=== PATIENT | female | born 1995 | race Caucasian/White ===

== ENCOUNTER 2021-03-23 04:46 | Inpatient (IN) | payer OTHER ==
[~2021-03-23] VITALS: Ht 165.1 cm; Wt 121.0 kg
[~2021-03-23 04:46] MED LIST: ALBU90OI; ALBU90OI INH; AZIT250 PO; BIRTH CONTROL; CETI10 PO; FLUSAL1005 INH; IBUP600 PO; IBUP800 PO; LABE100 PO; MEDR10 PO; MONT10T PO; NITR100CA PO; OXYACE5T PO; PHENA100 PO; PRED10 PO; PRED20 PO; PSEU120ER PO; VENL75ER PO; Verotin-Gr Cap1 EACH PO
[2021-03-23] MEDS ORDERED: ZYRTEC10 M2 PO (05:48)
[2021-03-23] MEDS ORDERED: MONT10T (05:48)
[2021-03-23 05:57] LABS: BASOPHILS ABSOLUTE AUTO 0.03 K/mm3 (0.00-0.23); BASOPHILS PERCENT AUTO 0 % (0-2); EOSINOPHILS ABSOLUTE AUTO 0.24 K/mm3 (0.00-0.68); EOSINOPHILS PERCENT AUTO 2 % (0-6); Hematocrit 31.9 % (33.0-51.0); Hemoglobin 10.3 g/dL (11.5-16.0); IMMATURE GRAN ABSOLUTE AUTO 0.13 K/mm3 (0.00-0.10); IMMATURE GRAN PERCENT AUTO 1 % (0-1); LYMPHOCYTES ABSOLUTE AUTO 2.18 K/mm3 (0.84-5.20); LYMPHOCYTES PERCENT AUTO 18 % (21-46); MONOCYTES PERCENT AUTO 7 % (4-13); Mean Corpuscular HGB 28.8 pg (26.0-34.0); Mean Corpuscular HGB Conc 32.3 g/dL (31.5-36.5); Mean Corpuscular Volume 89 fL (80-100); Mean Platelet Volume 10.5 fL (9.1-12.4); NEUTROPHILS ABSOLUTE AUTO 8.97 K/mm3 (1.96-9.15); NEUTROPHILS PERCENT AUTO 73 % (41-73); Platelet Count 252 K/mm3 (150-400); RDW Coefficient Variation 14.6 % (11.7-14.2); RDW Standard Deviation 46.7 fL (35.1-46.3); Red Blood Cell Count 3.58 M/mm3 (3.80-5.20); White Blood Cell Count 12.35 K/mm3 (4.00-11.30)
[2021-03-23 06:12] LABS: SARS-Cov-2 (COVID-19) PCR, MMC NEGATIVE (NEGATIVE)
[2021-03-24 05:55] LABS: Hematocrit 27.1 % (33.0-51.0); Hemoglobin 8.6 g/dL (11.5-16.0); Mean Corpuscular HGB 29.5 pg (26.0-34.0); Mean Corpuscular HGB Conc 31.7 g/dL (31.5-36.5); Mean Corpuscular Volume 93 fL (80-100); Mean Platelet Volume 10.5 fL (9.1-12.4); Platelet Count 187 K/mm3 (150-400); RDW Coefficient Variation 14.9 % (11.7-14.2); RDW Standard Deviation 50.5 fL (35.1-46.3); Red Blood Cell Count 2.92 M/mm3 (3.80-5.20); White Blood Cell Count 14.23 K/mm3 (4.00-11.30)
[2021-03-24] MEDS ORDERED: Colace100 MG PO (10:22)
[2021-03-24] MEDS ORDERED: IBUP800 PO (10:22)
--- NOTE | 2021-03-24 13:59 | NUR ---
PT IS DC'D HOME WITH AND SO. DC INSTRUCTIONS RECEIVED. BANDS MATCHED.
== END 2021-03-24 14:15 | disposition home or self-care (01) | DRG 807 ==
LOC: BC 04:46 → OBS 04:46 → BC 05:13
PROVIDERS: ADMIT Advanced Practice Midwife
PROC: 10E0XZZ Delivery of Products of Conception, External Approach (ICD-10-PCS; principal; 2021-03-23)
PROC: 3E0R3BZ Introduction of Anesthetic Agent into Spinal Canal, Percutaneous Approach (ICD-10-PCS; 2021-03-23)
PROC: 00HU33Z Insertion of Infusion Device into Spinal Canal, Percutaneous Approach (ICD-10-PCS; 2021-03-23)
DX: O99.824 Streptococcus B carrier state complicating childbirth (principal); Z37.0 Single live birth; Z3A.40 40 weeks gestation of pregnancy; O34.219 Maternal care for unspecified type scar from previous cesarean delivery; Z20.822 Contact with and (suspected) exposure to COVID-19
CPT/HCPCS: 36415; 51702; 85025; 85027; 86850; 86900; 86901; A9270; J0290; J1885; J2001; J2210; J2590; J3010; J7120; U0004

== ENCOUNTER → 2022-01-02 | Outpatient (CLI) | payer OTHER ==
[~2022-01-02] MED LIST changes: +Colace100 MG PO; +MONT10T; +ZYRTEC10 M2 PO
== END | disposition home or self-care (01) ==
LOC: LAB SHORT 11:30 → LAB 11:30
PROVIDERS: Family Medicine
DX: K52.9 Noninfective gastroenteritis and colitis, unspecified (principal)
CPT/HCPCS: 87338

== ENCOUNTER → 2023-07-15 | Outpatient (CLI) | payer OTHER | LOC: LAB 11:47 → LAB SHORT 11:47 | DX: R82.90 Unspecified abnormal findings in urine (principal) | CPT/HCPCS: 87086 ==

== ENCOUNTER → 2024-08-02 | Outpatient (CLI) | payer OTHER | LOC: LAB SHORT 12:00 → LAB 12:00 | DX: Z34.93 Encounter for supervision of normal pregnancy, unspecified, third trimester (principal) | CPT/HCPCS: 87081; 87150 ==

== ENCOUNTER 2024-08-20 07:05 | Inpatient (IN) | payer OTHER ==
[~2024-08-20] VITALS: Ht 165.1 cm; Wt 115.0 kg
[2024-08-20] VITALS (34 sets, daily range): BP systolic 97–134; BP diastolic 48–79
[2024-08-20] MEDS ORDERED: Lactated Ringer's 1,000 ML IV PRN ×3 (07:20→07:25)
[2024-08-20] MEDS ORDERED: OXYTOCIN/RINGER'S LACTATE 500 ML IV SCH (07:20)
[2024-08-20] MEDS ORDERED: FentaNYL 2mcg/ml-Bup 0.1% Epd 250 ML EPI PRN (07:20)
[2024-08-20] MEDS ORDERED: ePHEDrine Sulfate 50 MG/ML 1ML Injection XX PRN (07:20)
[2024-08-20] MEDS ORDERED: Acetaminophen 500 MG Tab PO PRN ×2 (07:20→23:20)
[2024-08-20] MEDS ORDERED: Misoprostol 200 MCG Tab BC PRN (07:20)
[2024-08-20] MEDS ORDERED: Carboprost Tromethamine 250 MCG/ML 1ML Amp IM PRN (07:20)
[2024-08-20] MEDS ORDERED: Misoprostol 200 MCG Tab PR PRN ×2 (07:20→23:15)
[2024-08-20] MEDS ORDERED: Oxytocin 10 Unit / ML Vial IM PRN (07:20)
[2024-08-20] MEDS ORDERED: Methylergonovine Maleate 0.2MG / ML 1ML Amp IM PRN ×2 (07:20→23:40)
[2024-08-20] MEDS ORDERED: Lactated Ringer's 1,000 ML IV SCH (07:20)
[2024-08-20] MEDS ORDERED: OXYTOCIN/RINGER'S LACTATE 500 ML IV PRN (07:20)
[2024-08-20] MEDS ORDERED: Ondansetron HCl 2 MG / ML 2ML Vial IV PRN ×2 (07:20→22:55)
[2024-08-20] MEDS ORDERED: Tranexamic Acid 100 ML IV SCH (07:20)
[2024-08-20] MEDS ORDERED: Calcium Carbonate 500 MG Tab Chew PO SCH (07:25)
[2024-08-20 08:07] LABS: BASOPHILS ABSOLUTE AUTO 0.02 K/mm3 (0.00-0.23); BASOPHILS PERCENT AUTO 0 % (0-2); EOSINOPHILS ABSOLUTE AUTO 0.23 K/mm3 (0.00-0.68); EOSINOPHILS PERCENT AUTO 2 % (0-6); Hematocrit 33.2 % (33.0-51.0); Hemoglobin 11.4 g/dL (11.5-16.0); IMMATURE GRAN ABSOLUTE AUTO 0.16 K/mm3 (0.00-0.10); IMMATURE GRAN PERCENT AUTO 2 % (0-1); LYMPHOCYTES ABSOLUTE AUTO 2.04 K/mm3 (0.84-5.20); LYMPHOCYTES PERCENT AUTO 19 % (21-46); MONOCYTES ABSOLUTE AUTO 0.75 K/mm3 (0.16-1.47); MONOCYTES PERCENT AUTO 7 % (4-13); Mean Corpuscular HGB 34.5 pg (26.0-34.0); Mean Corpuscular HGB Conc 34.3 g/dL (31.5-36.5); Mean Corpuscular Volume 101 fL (80-100); Mean Platelet Volume 9.8 fL (9.1-12.4); NEUTROPHILS ABSOLUTE AUTO 7.46 K/mm3 (1.96-9.15); NEUTROPHILS PERCENT AUTO 70 % (41-73); Platelet Count 203 K/mm3 (150-400); RDW Coefficient Variation 12.5 % (11.7-14.2); RDW Standard Deviation 45.9 fL (35.1-46.3); White Blood Cell Count 10.66 K/mm3 (4.00-11.30)
[2024-08-20] MEDS ORDERED: TRELEGY ELLIPT1 EAC1 INH (08:09)
[2024-08-20] MEDS ORDERED: FentaNYL Citrate 50 MCG/ML 2 ML Injection IV PRN ×2 (08:45→22:55)
[2024-08-20] MEDS ORDERED: NS 0 ML IV ONE (15:02)
[2024-08-20] MEDS ORDERED: NS 100 ML IV SCH (15:40)
[2024-08-20] MEDS ORDERED: CeFAZolin Sodium 2,000 MG in NS 100 ML IV SCH (20:30)
[2024-08-20] MEDS ORDERED: Citric Acid/Sodium Citrate 30 ML BTL PO ONE (20:30)
[2024-08-20] MEDS ORDERED: Azithromycin 500 MG in NS 250 ML IV SCH (20:30)
[2024-08-20] MEDS ORDERED: Metoclopramide HCl 5MG / ML 2ML Vial IV ONE (20:30)
[2024-08-20] MEDS ORDERED: Lidocaine HCl 2% 10 ML SDA ONE (20:52)
[2024-08-20] MEDS ORDERED: Oxytocin 10 Unit / ML Vial ONE ×2 (21:25→21:45)
[2024-08-20 21:38] LABS: PCO2 Cord - Arterial 70.9 mmHg (40-50)
[2024-08-20 21:39] LABS: PO2 Cord - Arterial < 14.0 mmHg (16-20)
[2024-08-20 21:40] LABS: PCO2 Cord - Venous 60.5 mmHg (40-50); PO2 Cord - Venous < 14.0 mmHg (28-32); pH Umbilical Cord - Venous 7.26 (7.26-7.35)
--- NOTE | 2024-08-20 21:41 | NUR ---
08/20/[id number] Emil De Luna PT ARRIVED TO OR WITH EPIDURAL AND JAIMES CATH IN PLACE. BABY BOY BORN AT 2123. CORD BLOOD SENT WITH ORALIA GALAN. CORD SEGMENT SENT WITH RT CLINE. PT VERBALLY CONSENTED FOR A TUBAL LIGATION WITH OR STAFF IN ROOM.
[2024-08-20] MEDS ORDERED: FentaNYL Citrate 50 MCG/ML 2 ML Injection ONE ×2 (21:57→22:10)
[2024-08-20] MEDS ORDERED: Albuterol 2.5 MG/3 ML VIAL INH PRN (22:50)
[2024-08-20] MEDS ORDERED: HYDROmorphone HCl/Pf 1MG SYR IV PRN ×2 (22:55)
[2024-08-20] MEDS ORDERED: Ketorolac Tromethamine 30mg Vial IV PRN (23:05)
[2024-08-20] MEDS ORDERED: DiphenhydrAMINE HCL 25 MG Cap PO PRN (23:10)
[2024-08-20] MEDS ORDERED: Methylergonovine Maleate 0.2 MG Tab PO PRN (23:10)
[2024-08-20] MEDS ORDERED: Promethazine HCl 25 MG Tab PO PRN (23:10)
[2024-08-20] MEDS ORDERED: OxyCODONE HCL 5 MG TAB PO PRN (23:10)
[2024-08-20] MEDS ORDERED: Magnesium Hydroxide Conc 10 ML UDC PO PRN (23:15)
[2024-08-20] MEDS ORDERED: Simethicone 80 MG Chew PO PRN (23:15)
[2024-08-20] MEDS ORDERED: OxyCODONE 5 mg/Acetamin 325 mg TABLET PO PRN (23:15)
[2024-08-20] MEDS ORDERED: Misoprostol 200 MCG Tab XX ONE (23:55)
[2024-08-21] VITALS (14 sets, daily range): BP systolic 101–120; BP diastolic 53–67
[2024-08-21] MEDS ORDERED: Ibuprofen 400 MG Tab PO SCH
[2024-08-21] MEDS ORDERED: Ketorolac Tromethamine 30mg Vial IV SCH
[2024-08-21 06:01] LABS: BASOPHILS ABSOLUTE AUTO 0.02 K/mm3 (0.00-0.23); BASOPHILS PERCENT AUTO 0 % (0-2); EOSINOPHILS ABSOLUTE AUTO 0.15 K/mm3 (0.00-0.68); EOSINOPHILS PERCENT AUTO 1 % (0-6); Hematocrit 31.7 % (33.0-51.0); Hemoglobin 10.9 g/dL (11.5-16.0); IMMATURE GRAN PERCENT AUTO 1 % (0-1); LYMPHOCYTES ABSOLUTE AUTO 1.87 K/mm3 (0.84-5.20); LYMPHOCYTES PERCENT AUTO 15 % (21-46); MONOCYTES ABSOLUTE AUTO 1.04 K/mm3 (0.16-1.47); MONOCYTES PERCENT AUTO 8 % (4-13); Mean Corpuscular HGB 34.5 pg (26.0-34.0); Mean Corpuscular HGB Conc 34.4 g/dL (31.5-36.5); Mean Corpuscular Volume 100 fL (80-100); Mean Platelet Volume 9.8 fL (9.1-12.4); NEUTROPHILS ABSOLUTE AUTO 9.45 K/mm3 (1.96-9.15); NEUTROPHILS PERCENT AUTO 75 % (41-73); Platelet Count 174 K/mm3 (150-400); RDW Coefficient Variation 12.4 % (11.7-14.2); RDW Standard Deviation 45.3 fL (35.1-46.3); Red Blood Cell Count 3.16 M/mm3 (3.80-5.20); White Blood Cell Count 12.63 K/mm3 (4.00-11.30)
[2024-08-21] MEDS ORDERED: Docusate Sodium 100 MG Cap PO SCH (09:00)
--- NOTE | 2024-08-21 14:57 | NUR ---
assumed care from wil muhammad rn
[2024-08-22 00:49] VITALS: BP 116/61
[2024-08-22 06:03] VITALS: BP 122/67
--- NOTE | 2024-08-22 06:29 | NUR ---
pt able to self ambulate to bathroom independantly
--- NOTE | 2024-08-22 06:30 | NUR ---
pt able to self ambulate to bathroom
[2024-08-22 08:14] VITALS: BP 111/59
[2024-08-22 12:09] VITALS: BP 120/56
[2024-08-22 15:33] VITALS: BP 130/58
[2024-08-22 19:23] VITALS: BP 125/67
[2024-08-23 01:26] VITALS: BP 109/53
[2024-08-23 08:59] VITALS: BP 120/59
[2024-08-23] MEDS ORDERED: FLU VACC TS2024-25(6MOS UP)/PF 45 MCG/0.5 ML SYRINGE IM SCH (12:35)
--- NOTE | 2024-08-23 16:25 | NUR ---
Discharged to home with
== END 2024-08-23 16:15 | disposition home or self-care (01) | DRG 785 ==
LOC: OBS 07:05 → BC 07:05 → OBS 07:22 → BC 07:23
PROVIDERS: Family Medicine; ADMIT Advanced Practice Midwife
PROC: 10907ZC Drainage of Amniotic Fluid, Therapeutic from Products of Conception, Via Natural or Artificial Opening (ICD-10-PCS; 2024-08-20)
PROC: 10D00Z1 Extraction of Products of Conception, Low, Open Approach (ICD-10-PCS; principal; 2024-08-20 10:45)
PROC: 0UT70ZZ Resection of Bilateral Fallopian Tubes, Open Approach (ICD-10-PCS; 2024-08-20 10:45)
DX: O40.3XX0 Polyhydramnios, third trimester, not applicable or unspecified (principal); O76 Abnormality in fetal heart rate and rhythm complicating labor and delivery; O34.211 Maternal care for low transverse scar from previous cesarean delivery; Z3A.39 39 weeks gestation of pregnancy; Z37.0 Single live birth; Z30.2 Encounter for sterilization
CPT/HCPCS: 36415; 51702; 82803; 85025; 86850; 86900; 86901; 86923; 88302; A9270; J0456; J0690; J1885; J2003; J2590; J3010; J7050; J7120

== ENCOUNTER 2025-02-07 10:50 | Emergency (ER) | payer OTHER ==
[~2025-02-07] VITALS: Ht 165.1 cm; Wt 113.4 kg
[~2025-02-07 10:50] MED LIST changes: +TRELEGY ELLIPT1 EAC1 INH
[2025-02-07 11:37] VITALS: BP 141/105
[2025-02-07] MEDS ORDERED: Ketorolac Tromethamine 15mg Vial IM ONE (11:40)
[2025-02-07] MEDS ORDERED: Ondansetron 4 MG SoluTab SL ONE (11:40)
[2025-02-07] MEDS ORDERED: PRED20 PO (14:37)
[2025-02-07] MEDS ORDERED: CYCL10 PO (14:37)
[2025-02-07] MEDS ORDERED: LIDO700A20 TOP (14:37)
== END 2025-02-07 14:58 | disposition home or self-care (01) ==
LOC: ER 10:50
DX: M50.322 Other cervical disc degeneration at C5-C6 level (principal); J45.909 Unspecified asthma, uncomplicated; Z79.899 Other long term (current) drug therapy
CPT/HCPCS: 72125; 72128; 96372; 99283-25; A9270; J1885

== ENCOUNTER → 2025-04-11 | Outpatient (CLI) | payer OTHER ==
[~2025-04-11] MED LIST changes: +CYCL10 PO; +LIDO700A20 TOP
== END ==
LOC: LAB SHORT 13:30 → LAB 13:30
DX: D22.9 Melanocytic nevi, unspecified (principal)
CPT/HCPCS: 88305